=== PATIENT | female | born 1960 | race Caucasian/White ===

== ENCOUNTER 2016-05-05 18:36 | Emergency (ER) | payer OTHER ==
[~2016-05-05] VITALS: Ht 160 cm; Wt 74.8 kg
[2016-05-05 18:41] VITALS: Ht 160 cm; Wt 74.8 kg
[2016-05-05] MEDS ORDERED: ONDANSETRON INJ 2 MG/ML 2 ML VIAL IV STA ×2 (19:29→20:35)
[2016-05-05] MEDS ORDERED: SODIUM CHLORIDE 0.9% 1000ML 1,000 ML IV STA (19:29)
[2016-05-05 20:04] LABS: BASO % 0.1 %; BASO ABS # 0.01 K/uL (0-0.2); COMPLETE YES; EOS % 0.3 %; HEMATOCRIT 45.6 % (37-47); IG% 0.2 %; LYMPH % 4.2 %; LYMPH ABS # 0.44 K/uL (1.2-3.4); MEAN CELL VOLUME 85.2 fL (80-100); MEAN CORPUSCULAR HEMOGLOBIN 30.3 pg (25-34); MEAN CORPUSCULAR HGB CONC 35.5 g/dl (32-36); MEAN PLATELET VOLUME 11.3 fL (7.4-10.4); MONO % 2.3 %; NEUT % 92.9 %; PLATELET COUNT 139 K/uL (130-400); RED BLOOD COUNT 5.35 M/uL (4.2-5.4); WHITE BLOOD COUNT 10.38 K/uL (4.8-10.8)
[2016-05-05 20:27] LABS: BUN/CREATININE RATIO 25.7 (10-20); CALCIUM 8.7 mg/dl (8.5-10.1); CREATININE 0.87 mg/dl (0.60-1.20); POTASSIUM 3.8 mmol/L (3.5-5.1)
[2016-05-05] MEDS ORDERED: AMOX500T PO (20:42)
[2016-05-05] MEDS ORDERED: IBUP-1050 PO (20:42)
[2016-05-05] MEDS ORDERED: PROMETHAZINE HCL INJ 12.5 MG in SODIUM CHLORIDE 0.9% 50ML 50 ML IV STA (21:14)
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
[2016-05-06] MEDS ORDERED: ACETAMINOPHEN 500 MG TAB PO ONE (01:16)
[2016-05-06] MEDS ORDERED: ACETAMINOPHEN 500 MG TAB PO STA (01:20)
[2016-05-06] MEDS ORDERED: NURSING VERBAL MED ORDER ONE ×2 (01:30)
[2016-05-06] MEDS ORDERED: SODIUM CHLORIDE 0.9% 1000ML 1,000 ML IV SCH ×2 (01:30→03:20)
--- NOTE | 2016-05-06 02:06 | EMERGENCY ROOM VISIT NOTE ---
ED Visit Note First contact with patient: 02:00 Dr Kilpatrick contacted me requesting I discharge patient to home with to go crissy. Patient with nausea, vomiting, diarrhea. Feeling better on evaluation by me. Asking to sleep a bit longer prior to contacting significant other for ride home. Patient with no complaints and no further issues on my discussion with her.
--- NOTE | 2016-05-06 02:09 | Medical Consult ---
Consultation Date of Consultation: May 06, 2016. Attending Physician: Jamaal Reason for Consultation: N/V/D History of Present Illness 55 y/o F w/hx of fibroids and related anemia, distant Hx of ETOH abuse presents with nausea vomiting and diarrhea for 1 day. She states she feels hot but could not confirm a fever. She felt weak and dehydrated and sought medical attention therefore. She was evaluated in the ER and provided with 2 L of fluids and antiemetics. She has since improved and has been able to tolerate PO solids and fluids. She has not had significant abdominal pain, fever or additional episodes of vomiting or diarrhea while in the ER. Past Medical/Surgical History Medical Problems: (1) Acute chest pain Status: Acute (2) Diarrhea Status: Acute (3) Dyspnea Status: Acute (4) Headache Status: Acute (5) Intractable vomiting Status: Acute (6) Left leg pain Status: Acute (7) Myalgia Status: Acute (8) Sinusitis Status: Acute (9) URI (upper respiratory infection) Status: Acute Family History FH: alcoholism FH: cancer Father - Alzheimer's dementia Mother - colon CA Social History Smokes 2-3 cigarettes daily - previous ETOH abuse Smoking Status: Current Every Day Smoker Drug Use: none Marital Status: Housing Status: lives with family Occupation Status: employed Allergies Coded Allergies: No Known Allergies (Unverified , 05/05/16) Current Inpatient Medications Current Inpatient Medications Medications (Trade) Dose Ordered Sig/Zabrina Route Start Time Stop Time Status Last Admin Dose Admin Sodium Chloride 916.65 ml @ 500 mls/ hr Q1H50M IV 05/06/16 01:30 05/06/16 03:20 05/06/16 01:37 999 MLS/HR Sodium Chloride (Nss 1000ml) 30 ml @ 15 mls/hr Q2H IV 05/06/16 03:20 05/06/16 05:19 Review of Systems Constitutional: + fatigue, + weakness, No chills, No fever, No sweats Eyes: No worsening of vision ENT: No hearing loss, No nasal symptoms, No unusual epistaxis Respiratory: No cough, No sputum, No wheezing Cardiovascular: No PND, No chest pain, No orthopnea Abdomen: + diarrhea, + nausea, + vomiting, No GI bleeding, No constipation, No pain, No problem reported Musculoskeletal: No joint pain, No muscle pain Genitourinary - Female: No dysuria, No urinary frequency, No urinary urgency Neurologic: No memory loss, No paralysis Psychiatric: No depression symptoms Endocrine: + fatigue Hematologic / Lymphatic: No abnormal bleeding/bruising Integumentary: + rash (Chronic redness over hands/face) Allergic / Immunologic: No environmental allergies Physical Exam Date Time Temp Pulse Resp B/P Pulse Ox O2 Delivery O2 Flow Rate FiO2 05/06/16 01:13 37.5 95 16 96/49 96 Room Air 05/06/16 00:45 81 16 99/58 96 Room Air 05/05/16 22:48 85 16 94/61 96 Room Air 05/05/16 21:53 93 16 95/53 95 Room Air 05/05/16 20:33 36.9 91 16 129/107 97 Room Air 05/05/16 18:41 36.8 79 22 125/68 99 Room Air General Appearance: WD/WN, no apparent distress Head: normocephalic Eyes: normal inspection, PERRL, EOMI ENT: normal ENT inspection, pharynx normal Neck: supple, no JVD Respiratory/Chest: chest non-tender, lungs clear, normal breath sounds, no respiratory distress, no accessory muscle use Cardiovascular: regular rate, rhythm, no edema, no gallop, no JVD, no murmur, normal peripheral pulses Abdomen/GI: normal bowel sounds, non tender, soft Back: normal inspection, no CVA tenderness Extremities/Musculoskelatal: normal inspection, normal range of motion 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: 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 as tested, no motor/sensory deficits, alert, normal mood/affect, normal reflexes, oriented x 3 Skin: warm/dry, + pertinent finding (Mallar erythema - erythema of hands - reported chronic ) Laboratory Results Last 24 Hours Test 05/05/16 19:45 White Blood Count 10.38 K/uL Red Blood Count 5.35 M/uL Hemoglobin 16.2 g/dL Hematocrit 45.6 % Mean Corpuscular Volume 85.2 fL Mean Corpuscular Hemoglobin 30.3 pg Mean Corpuscular Hemoglobin Concent 35.5 g/dl Platelet Count 139 K/uL Mean Platelet Volume 11.3 fL Neutrophils (%) (Auto) 92.9 % Lymphocytes (%) (Auto) 4.2 % Monocytes (%) (Auto) 2.3 % Eosinophils (%) (Auto) 0.3 % Basophils (%) (Auto) 0.1 % Neutrophils # (Auto) 9.64 K/uL Lymphocytes # (Auto) 0.44 K/uL Monocytes # (Auto) 0.24 K/uL Eosinophils # (Auto) 0.03 K/uL Basophils # (Auto) 0.01 K/uL RDW Standard Deviation 40.9 fL RDW Coefficient of Variation 13.2 % Immature Granulocyte % (Auto) 0.2 % Immature Granulocyte # (Auto) 0.02 K/uL Sodium Level 141 mmol/L Potassium Level 3.8 mmol/L Chloride Level 105 mmol/L Carbon Dioxide Level 25 mmol/L Anion Gap 11.0 mmol/L Blood Urea Nitrogen 22 mg/dl Creatinine 0.87 mg/dl Est Creatinine Clear Calc Drug Dose 71.6 ml/min Estimated GFR () 87.5 Estimated GFR (Non- 75.5 BUN/Creatinine Ratio 25.7 Random Glucose 108 mg/dl Calcium Level 8.7 mg/dl Assessment & Plan 55 y/o F w/hx of fibroids and related anemia, distant Hx of ETOH abuse presents with nausea vomiting and diarrhea for 1 day. She states she feels hot but could not confirm a fever. She felt weak and dehydrated and sought medical attention therefore. She was evaluated in the ER and provided with 2 L of fluids and antiemetics. She has since improved and has been able to tolerate PO solids and fluids. She has not had significant abdominal pain, fever or additional episodes of vomiting or diarrhea while in the ER. Pt has symptomatically improved and has no significant lab abnormalities or reported fevers. Case was discussed with the ER MD and advised on D/C and outpt f/u - rx for antiemetics , advise on adequate hydration. Pt told to return to the hospital if symptoms recur, she develops fevers or abdominal pain or is unable to tolerate PO intake and maintain hydration.
[2016-05-06] MEDS ORDERED: ONDANSETRON HOME PACK 4MG OD TAB PO ONE (02:15)
[2016-05-06 02:38] VITALS: BP 95/58; PULSE 95; TEMP 37.5; O2SAT 97
== END 2016-05-06 02:39 | disposition home or self-care (01) ==
LOC: C.EDB 18:38 → C.EDC 05-06 02:39
DX: R11.10 Vomiting, unspecified (principal); R19.7 Diarrhea, unspecified; M19.90 Unspecified osteoarthritis, unspecified site; D64.9 Anemia, unspecified; F17.200 Nicotine dependence, unspecified, uncomplicated; Z87.442 Personal history of urinary calculi; Z80.9 Family history of malignant neoplasm, unspecified

== ENCOUNTER 2016-08-04 16:33 | Emergency (ER) | payer OTHER ==
[~2016-08-04] VITALS: Ht 157.5 cm; Wt 73.5 kg
[~2016-08-04 16:33] MED LIST: AMOX500T PO; IBUP-1050 PO
[2016-08-04 16:36] VITALS: TEMP 36.5; Ht 157.5 cm; Wt 73.5 kg
[2016-08-04] MEDS ORDERED: MoRPHine SULFATE 4 MG/ML 1 ML CARP\\VIAL IV STA ×2 (17:20→19:09)
[2016-08-04] MEDS ORDERED: SODIUM CHLORIDE 0.9% 1000ML 1,000 ML IV STA (17:20)
[2016-08-04] MEDS ORDERED: ONDANSETRON INJ 2 MG/ML 2 ML VIAL IV STA (17:20)
[2016-08-04 17:46] LABS: BASO % 0.2 %; BASO ABS # 0.01 K/uL (0-0.2); COMPLETE YES; EOS % 0.6 %; HEMATOCRIT 41.7 % (37-47); LYMPH % 12.7 %; LYMPH ABS # 0.62 K/uL (1.2-3.4); MEAN CELL VOLUME 85.3 fL (80-100); MEAN CORPUSCULAR HEMOGLOBIN 29.7 pg (25-34); MEAN CORPUSCULAR HGB CONC 34.8 g/dl (32-36); MONO % 10.2 %; NEUT % 76.3 %; PLATELET COUNT 137 K/uL (130-400); RED BLOOD COUNT 4.89 M/uL (4.2-5.4); WHITE BLOOD COUNT 4.89 K/uL (4.8-10.8)
[2016-08-04 17:49] LABS: URINE APPEARANCE CLEAR (CLEAR); URINE BILIRUBIN NEG (NEG); URINE COLOR YELLOW; URINE NITRITE NEG (NEG); URINE SPECIFIC GRAVITY 1.003 (1.000-1.030); UROBILINOGEN NEG (NEG)
[2016-08-04 17:54] LABS: MANUAL MICROSCOPIC REQUIRED? NO; REVIEW REQ? NO
[2016-08-04 18:03] LABS: BUN/CREATININE RATIO 13.8 (10-20); CALCIUM 9.1 mg/dl (8.5-10.1); CREATININE 0.77 mg/dl (0.60-1.20); POTASSIUM 3.7 mmol/L (3.5-5.1)
--- NOTE | 2016-08-04 18:25 | DIAGNOSTIC IMAGING REPORT ---
PA CHEST RADIOGRAPH AND UPRIGHT AND SUPINE AP RADIOGRAPHS OF THE ABDOMEN CLINICAL HISTORY: Abdominal pain, bloating and nausea. COMPARISON STUDY: Chest radiograph January 20, [address] of the chest abdomen and pelvis September 13, 2015. FINDINGS: Lung lungs are normal. There is no pneumothorax or pleural effusion. There is no evidence of pulmonary edema. Cardiomediastinal silhouette is stable. There is no free air. There is no evidence for a bowel obstruction. IMPRESSION: 1. No free air or evidence of bowel obstruction. 2. No acute cardiopulmonary findings. Electronically signed by: Darek Angelo M.D. 08/04/2016 6:24 PM Dictated Date/Time: 08/04/2016 6:23 PM
[2016-08-04] MEDS ORDERED: OPTIRAY 320 IV PRN (19:15)
--- NOTE | 2016-08-04 19:53 | DIAGNOSTIC IMAGING REPORT ---
CT OF THE ABDOMEN AND PELVIS WITH CONTRAST CLINICAL HISTORY: Left-sided abdominal pain. COMPARISON STUDY: CT of the chest, abdomen and pelvis September 13, 2015 TECHNIQUE: Following IV administration of 116 mL of Optiray-320, axial images of the abdomen and pelvis were obtained from the lung bases to the proximal femurs. Images were reviewed in the axial, sagittal, and coronal planes. IV contrast was administered without complication. CT DOSE: 378.18 mGy.cm FINDINGS: A right hepatic lobe hemangioma is again noted. The spleen, adrenal glands, kidneys and pancreas are unremarkable. There is no biliary or pancreatic ductal dilatation. There is no evidence for a bowel obstruction. The appendix is normal. There is no free fluid. There is no abscess. A 10 x 8 x 6.5 cm mixed attenuation enhancing mass arising from the uterine fundus is unchanged since exam of September 13, 2015. This suggests a fibroid. There is no lymphadenopathy. There is no pneumatosis, free air or portal venous gas. No suspicious skeletal lesions are identified. IMPRESSION: 1. No acute process within the abdomen or pelvis. 2. No change in the mass arising from the uterine fundus. This statistically represents a fibroid although this remains a pathologic diagnosis. Electronically signed by: Darek Angelo M.D. 08/04/2016 7:52 PM Dictated Date/Time: 08/04/2016 7:44 PM
[2016-08-04 20:41] VITALS: BP 116/72; PULSE 58; O2SAT 96
--- NOTE | 2016-08-05 22:58 | EMERGENCY ROOM VISIT NOTE ---
ED Visit Note First contact with patient: 17:05 Chief Complaint: Abdominal pain. History of Present Illness: Ms. Fowler is a 56 year-old white female who ambulates into the ED accompanied by her complaining of diffuse abdominal pain. Historically patient reports no significant gastrointestinal disorders patient reports she came to the ER from her doctor's office. She reports her PCP ordered outpatient testing but she reported she "was feeling so bad she wanted to come to the ED" for further evaluation and care. Patient reports shortly after waking yesterday morning she developed a mild achiness sensation just below the umbilicus in the central portion of the abdomen. She reports the discomfort was constant throughout the day but not severe. She did not take any medications for her pain and she noticed just a general decrease in appetite. She goes on to report that today after waking the pain seems slightly worse but remained constant. She then reports she had a large loose bowel movement and the pain increased. She describes her pain as sharp and crampy. She places the majority of her discomfort in the left mid quadrant area. She rates her discomfort 7/10. Her pain is nonradiating. She has not taken any medications for her discomfort and has not identified any alleviating factors related to the pain. Associated with the pain she reports she's been nauseated but has not vomited, she has had chills but is unsure chilo fevers and she has had a decreased appetite. Additionally she does report that she was on antibiotics approximately 2 months ago for cyst structure on her left leg and this pain medication needed to be redosed for return of infection. She does not remember the name of the antibiotic. Patient denies sweats, skin eruptions, skin color changes, upper respiratory tract symptoms, shortness of breath, chest pain, constipation, rectal bleeding, black/tarry stools, urinary symptoms, hematuria, vaginal bleeding, vaginal discharge, back/flank pain. Review of Systems: As noted above in history of present illness. All body systems were reviewed and found to be negative as noted above. Past Medical History: Unspecified skin disorder. Current Medications: Patient denies. Allergies to Medications: Patient denies. Social History: Patient is currently employed; she feels safe in her home environment; she admits to tobacco use and denies alcohol use. Physical Examination: Vital Signs: Date Time Temp Pulse Resp B/P Pulse Ox O2 Delivery O2 Flow Rate FiO2 08/04/16 20:41 58 116/72 96 Room Air 08/04/16 19:19 70 16 113/74 97 Room Air 08/04/16 17:43 70 16 138/80 99 Room Air 08/04/16 16:36 36.5 91 20 140/92 99 Room Air GENERAL: 56-year-old female in moderate distress due to pain, nontoxic-appearing , afebrile and hemodynamically stable. NEUROLOGICAL: Awake, alert and oriented to person, place and time. Answering questions appropriately and following commands. Normal gait. Good hand eye coordination. SKIN: Warm, dry and pink. No soft tissue eruptions or trauma noted. HEENT: Atraumatic and normocephalic. PERRL. Sclera white and conjunctiva pink. Oral cavity moist and pink. Pharynx is nonerythematous or edematous. Speech normal. No lymphadenopathy. Trachea midline. No jugular venous distention. BACK: No tenderness over the bony spine. No CVA tenderness. THORAX: Lungs sounds are clear to auscultation and equal bilaterally with symmetrical chest wall. No wheezing, rales or rhonchi. No crepitus, tenderness , subcutaneous air or deformities noted. HEART: Regular rate and rhythm. No gallops, rubs or murmurs are appreciated. ABDOMEN: Flat and with mild to moderate tenderness in the left mid quadrant area and mild discomfort throughout the rest of the abdomen. Decreased bowel sounds in all quadrants. No guarding, rigidity or organomegaly. EXTREMITIES: Moves all extremities well on command and with purpose. All distal neurovascular statuses are intact and equal bilaterally. ED Course: Patient is assessed as noted above. Laboratory Testing: Test 08/04/16 17:31 08/04/16 17:34 Range/Units White Blood Count 4.89 4.8-10.8 K/uL Red Blood Count 4.89 4.2-5.4 M/uL Hemoglobin 14.5 12.0-16.0 g/dL Hematocrit 41.7 37-47 % Mean Corpuscular Volume 85.3 80-100 fL Mean Corpuscular Hemoglobin 29.7 25-34 pg Mean Corpuscular Hemoglobin Concent 34.8 32-36 g/dl Platelet Count 137 130-400 K/uL Mean Platelet Volume 10.0 7.4-10.4 fL Neutrophils (%) (Auto) 76.3 % Lymphocytes (%) (Auto) 12.7 % Monocytes (%) (Auto) 10.2 % Eosinophils (%) (Auto) 0.6 % Basophils (%) (Auto) 0.2 % Neutrophils # (Auto) 3.73 1.4-6.5 K/uL Lymphocytes # (Auto) 0.62 1.2-3.4 K/uL Monocytes # (Auto) 0.50 0.11-0.59 K/uL Eosinophils # (Auto) 0.03 0-0.5 K/uL Basophils # (Auto) 0.01 0-0.2 K/uL RDW Standard Deviation 41.3 36.4-46.3 fL RDW Coefficient of Variation 13.2 11.5-14.5 % Immature Granulocyte % (Auto) 0.0 % Immature Granulocyte # (Auto) 0.00 0.00-0.02 K/uL Sodium Level 142 136-145 mmol/L Potassium Level 3.7 3.5-5.1 mmol/L Chloride Level 107 98-107 mmol/L Carbon Dioxide Level 28 21-32 mmol/L Anion Gap 7.0 3-11 mmol/L Blood Urea Nitrogen 11 7-18 mg/dl Creatinine 0.77 0.60-1.20 mg/dl Est Creatinine Clear Calc Drug Dose 77.5 ml/min Estimated GFR () 100.7 Estimated GFR (Non- 86.9 BUN/Creatinine Ratio 13.8 10-20 Random Glucose 87 70-99 mg/dl Calcium Level 9.1 8.5-10.1 mg/dl Total Bilirubin 0.6 0.2-1 mg/dl Direct Bilirubin 0.2 0-0.2 mg/dl Aspartate Amino Transf (AST/SGOT) 21 15-37 U/L Alanine Aminotransferase (ALT/SGPT) 21 12-78 U/L Alkaline Phosphatase 60 45-117 U/L Total Protein 7.6 6.4-8.2 gm/dl Albumin 4.1 3.4-5.0 gm/dl Lipase 145 73-393 U/L Urine Color YELLOW Urine Appearance CLEAR CLEAR Urine pH 7.0 4.5-7.5 Urine Specific [place] 1.003 1.000-1.030 Urine Protein NEG NEG Urine Glucose (UA) NEG NEG Urine Ketones NEG NEG Urine Occult Blood NEG NEG Urine Nitrite NEG NEG Urine Bilirubin NEG NEG Urine Urobilinogen NEG NEG Urine Leukocyte Esterase NEG NEG Acute Abdominal Series: Chest shows no acute infiltrates, effusions or pneumothorax. Normal heart silhouette and bony anatomy. Abdominal component shows a nonobstructive bowel gas pattern with no signs of free air. IV Contrast Abdominal/Pelvic CT: Was reviewed by myself and read by the radiologist showing no acute process within the abdomen or pelvis; stable appearing right hepatic hemangioma and no change of a mass arising from the uterine fundus statistically consistent with fibroid. Patient was hydrated with normal saline, she received a total of 8 mg of morphine IV for pain and 4 mg of Zofran IV. Patient was reassessed multiple times during her stay in the emergency department. Patient's case was reviewed with Dr. Falcon; we agreed on diagnostic approach, treatment, disposition and plan. Patient was educated about negrita's findings and instructed on her treatment plan; she verbalizes understanding and agreement with this plan. Clinical Impression: Left-sided abdominal pain of unknown causes. Decision-Making: Initially my differential diagnosis I considered pyelonephritis , diverticulitis, kidney stone, colitis, C. difficile, hepatitis, pancreatitis and other causes. Disposition: Patient discharged home in stable condition; prior to departure she was reassessed and subjectively reported she was pain and symptom-free. Plan: Patient was encouraged to alternate ibuprofen and acetaminophen as needed for pain. Patient was encouraged to stay well-hydrated. Patient was encouraged use a bland diet for the next 3-4 days. Patient is encouraged to follow-up with her primary care provider. Patient was encouraged return the ED for severe pain, fevers, vomiting, bloody stools or any new/concerning symptoms.
== END 2016-08-04 20:30 | disposition home or self-care (01) ==
LOC: C.EDB 16:35
DX: R10.9 Unspecified abdominal pain (principal)

== ENCOUNTER 2016-09-07 08:52 | Emergency (ER) | payer OTHER ==
[~2016-09-07] VITALS: Ht 160 cm; Wt 80.4 kg
[2016-09-07 09:00] VITALS: TEMP 36.8; Ht 160 cm; Wt 80.4 kg
[2016-09-07] MEDS ORDERED: ONDANSETRON INJ 2 MG/ML 2 ML VIAL IV STA (09:09)
[2016-09-07] MEDS ORDERED: SODIUM CHLORIDE 0.9% 1000ML 1,000 ML IV STA ×2 (09:09→10:57)
[2016-09-07 09:38] LABS: BASO % 0.2 %; BASO ABS # 0.01 K/uL (0-0.2); COMPLETE YES; EOS % 0.5 %; HEMATOCRIT 43.9 % (37-47); IG% 0.2 %; LYMPH % 9.8 %; LYMPH ABS # 0.62 K/uL (1.2-3.4); MEAN CELL VOLUME 87.1 fL (80-100); MEAN CORPUSCULAR HEMOGLOBIN 29.2 pg (25-34); MEAN CORPUSCULAR HGB CONC 33.5 g/dl (32-36); MEAN PLATELET VOLUME 9.8 fL (7.4-10.4); MONO % 7.3 %; PLATELET COUNT 140 K/uL (130-400); RED BLOOD COUNT 5.04 M/uL (4.2-5.4)
[2016-09-07 10:04] LABS: BUN/CREATININE RATIO 17.9 (10-20); CALCIUM 8.9 mg/dl (8.5-10.1); CREATININE 0.71 mg/dl (0.60-1.20); MAGNESIUM 1.9 mg/dl (1.8-2.4); POTASSIUM 3.9 mmol/L (3.5-5.1)
--- NOTE | 2016-09-07 10:04 | DIAGNOSTIC IMAGING REPORT ---
HEAD CT NONCONTRAST CT DOSE: 776.86 mGycm HISTORY: Worst headache of life, frontal headache TECHNIQUE: Multiaxial CT images of the head were performed without the use of intravenous contrast. Automated exposure control was utilized for this study. Comparison: Head CT 02/05/2015 and 09/20/2013. Findings: Stable chronic opacification of the left maxillary sinus. The calvarium and skull base are intact. 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 No hydrocephalus. Ventricles and sulci are within normal limits. There is no hematoma, midline shift, acute infarct. Impression: No significant change compared to the prior study. No acute intracranial abnormality. Stable chronic opacification of the left maxillary sinus. Electronically signed by: Marcos Donald M.D. 09/07/2016 10:03 AM Dictated Date/Time: 09/07/2016 9:58 AM
[2016-09-07 10:07] LABS: ALB/GLOB RATIO 1.2 (0.9-2)
[2016-09-07] MEDS ORDERED: PROMETHAZINE HCL INJ 12.5 MG in SODIUM CHLORIDE 0.9% 50ML 50 ML IV STA (10:39)
[2016-09-07] MEDS ORDERED: KETOROLAC TROMETHAMINE 30 MG/ML VIAL IV STA (10:41)
[2016-09-07] MEDS ORDERED: DiphenhydrAMINE HCL 50 MG/ML VIAL IV STA (10:41)
[2016-09-07] MEDS ORDERED: PROCHLORPERAZINE 5 MG/ML 2 ML VIAL IV STA (10:41)
[2016-09-07 11:11] LABS: URINE APPEARANCE CLEAR (CLEAR); URINE BILIRUBIN NEG (NEG); URINE COLOR YELLOW; URINE NITRITE POS (NEG); URINE PH 7.5 (4.5-7.5); UROBILINOGEN NEG (NEG)
[2016-09-07 11:16] LABS: MANUAL MICROSCOPIC REQUIRED? YES; REVIEW REQ? NO; SULFASALICYLIC ACID NEG (NEG)
[2016-09-07 11:18] LABS: URINE BACTERIA 3+ (NEG); URINE RBC 0-4 /hpf (0-4); ZZUR CULT IF INDIC CLEAN CATCH YES
[2016-09-07] MEDS ORDERED: ONDA4TAB10 SL (12:30)
--- NOTE | 2016-09-07 12:32 | EMERGENCY ROOM VISIT NOTE ---
History First contact with patient: 08:55 Chief Complaint: NAUSEA Stated Complaint: NAUSEA,VOMITTING Nursing Triage Summary: pt reports she went to dentist yetserday had left lower molar extracted yesterday today feels nauseated. pt reports extraction took 2 hours History of Present Illness The patient is a 56 year old female who presents to the Emergency Room via private vehicle with complaints of "nausea, vomiting". Patient states that yesterday she had her left posterior inferior molar extracted by Dr. Fitzgerald here and [facility]. She states that she then began with a headache, and will dental pain. She states that the headache felt like she was struck by a sledgehammer. She has had nausea and associated vomiting 1. She rates the headache pain as a 7/10. She is taking tramadol with minimal relief. There is no abdominal pain. There are no urinary symptoms. She does not that her urine does have an odorous hint. Review of Systems A complete 10-point Review of Systems was discussed with the patient, with pertinent positives and negatives listed in the History of Present Illness. All remaining Review of Systems questions can be considered negative unless otherwise specified. Past Medical/Surgical History Medical Problems: (1) Alcohol abuse (2) Anemia (3) Arthritis (4) chest tight /sob (5) Kidney infection Family History FH: alcoholism FH: cancer Social History Smoking Status: Current Every Day Smoker Alcohol Use: occasionally Drug Use: none Marital Status: Housing Status: lives with family Occupation Status: employed Current/Historical Medications Scheduled Ondasetron Odt (Zofran Odt), 4 MG SL Q6H Allergies Coded Allergies: No Known Allergies (Unverified , 09/07/16) Physical Exam Vital Signs Date Time Temp Pulse Resp B/P Pulse Ox O2 Delivery O2 Flow Rate FiO2 09/07/16 12:50 65 16 116/75 99 09/07/16 11:01 69 16 98/56 99 Room Air 09/07/16 09:00 36.8 68 18 137/82 97 Room Air Pain Rating (0-10): 7.0 Physical Exam VITAL SIGNS - Vital signs and nursing notes were reviewed. Patient is with normal vital signs. GENERAL -56-year-old female appearing her stated age who is in no acute distress. Communicates well with provider and answers questions appropriately. SKIN - Without rashes. No petechial rashes. HEAD - NC/AT. No brock signs or raccoons eyes. EYES - PERRL with EOMI bilaterally. Sclera anicteric. Palpebral conjunctiva pink and moist with no injection noted. EARS - No deformities of external structures noted on gross examination bilaterally. No pain elicited with palpation of the tragus bilaterally. External auditory canals without discharge or otorrhea. Tympanic membranes pearly vaughn without retraction or bulging. No fluid or purulent material visualized behind the TM. Handle of malleus, umbo, cone of light, pars tensa/ flaccid all easily visualized. NOSE - Midline and without cyanosis. No epistaxis or purulent drainage noted. Septum midline without deviation or septal hematoma noted. MOUTH/OROPHARYNX - Without perioral cyanosis. Buccal mucosa pink and moist and without leukoplakia. Tongue midline with equal elevation of palate bilaterally. No tonsillar hypertrophy, erythema, or exudates noted. Poor dentition noted. There is evidence of recent tooth extraction in the inferior posterior left molar region with no bleeding. NECK - Neck with FROM. Supple to palpation. No lymphadenopathy noted. No nuchal rigidity. No meningismus. LUNGS - Chest wall symmetric without accessory muscle use, intercostals retractions, or central cyanosis. Normal vesicular breath sounds CTA B/L. No wheezes, rales, or rhonchi appreciated. CARDIAC - RRR with S1/S2. No murmur, rubs, or gallops appreciated. EXTREMITIES - +5/5 strength noted in UE/LE bilaterally. NEUROLOGIC - Cranial nerves II through XII grossly intact. PSYCH - A&Ox3 and cooperates fully with examiner. Pt is very pleasant and interacts well with examiner. Medical Decision & Procedures ER Provider Diagnostic Interpretation: HEAD CT NONCONTRAST CT DOSE: 776.86 mGycm HISTORY: Worst headache of life, frontal headache TECHNIQUE: Multiaxial CT images of the head were performed without the use of intravenous contrast. Automated exposure control was utilized for this study. Comparison: Head CT 02/05/2015 and 09/20/2013. Findings: Stable chronic opacification of the left maxillary sinus. The calvarium and skull base are intact. 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 No hydrocephalus. Ventricles and sulci are within normal limits. There is no hematoma, midline shift, acute infarct. Impression: No significant change compared to the prior study. No acute intracranial abnormality. Stable chronic opacification of the left maxillary sinus. Electronically signed by: Marcos Donald M.D. 09/07/2016 10:03 AM Dictated Date/Time: 09/07/2016 9:58 AM Laboratory Results 09/07/16 09:32 Red Blood Count 5.04, Mean Corpuscular Volume 87.1, Mean Corpuscular Hemoglobin 29.2, Mean Corpuscular Hemoglobin Concent 33.5, Mean Platelet Volume 9.8, Neutrophils (%) (Auto) 82.0, Lymphocytes (%) (Auto) 9.8, Monocytes (%) (Auto) 7.3, Eosinophils (%) (Auto) 0.5, Basophils (%) (Auto) 0.2, Neutrophils # (Auto) 5.17, Lymphocytes # (Auto) 0.62, Monocytes # (Auto) 0.46, Eosinophils # (Auto) 0.03, Basophils # (Auto) 0.01 09/07/16 09:32 Test 09/07/16 09:32 09/07/16 11:00 White Blood Count 6.30 K/uL (4.8-10.8) Red Blood Count 5.04 M/uL (4.2-5.4) Hemoglobin 14.7 g/dL (12.0-16.0) Hematocrit 43.9 % (37-47) Mean Corpuscular Volume 87.1 fL (80-100) Mean Corpuscular Hemoglobin 29.2 pg (25-34) Mean Corpuscular Hemoglobin Concent 33.5 g/dl (32-36) Platelet Count 140 K/uL (130-400) Mean Platelet Volume 9.8 fL (7.4-10.4) Neutrophils (%) (Auto) 82.0 % Lymphocytes (%) (Auto) 9.8 % Monocytes (%) (Auto) 7.3 % Eosinophils (%) (Auto) 0.5 % Basophils (%) (Auto) 0.2 % Neutrophils # (Auto) 5.17 K/uL (1.4-6.5) Lymphocytes # (Auto) 0.62 K/uL (1.2-3.4) Monocytes # (Auto) 0.46 K/uL (0.11-0.59) Eosinophils # (Auto) 0.03 K/uL (0-0.5) Basophils # (Auto) 0.01 K/uL (0-0.2) RDW Standard Deviation 42.0 fL (36.4-46.3) RDW Coefficient of Variation 13.2 % (11.5-14.5) Immature Granulocyte % (Auto) 0.2 % Immature Granulocyte # (Auto) 0.01 K/uL (0.00-0.02) Anion Gap 6.0 mmol/L (3-11) Est Creatinine Clear Calc Drug Dose 89.9 ml/min Estimated GFR () 111.1 Estimated GFR (Non- 95.9 BUN/Creatinine Ratio 17.9 (10-20) Calcium Level 8.9 mg/dl (8.5-10.1) Magnesium Level 1.9 mg/dl (1.8-2.4) Total Bilirubin 0.5 mg/dl (0.2-1) Aspartate Amino Transf (AST/SGOT) 15 U/L (15-37) Alanine Aminotransferase (ALT/SGPT) 19 U/L (12-78) Alkaline Phosphatase 64 U/L (45-117) Total Protein 7.2 gm/dl (6.4-8.2) Albumin 3.9 gm/dl (3.4-5.0) Globulin 3.3 gm/dl (2.5-4.0) Albumin/Globulin Ratio 1.2 (0.9-2) Urine Color YELLOW Urine Appearance CLEAR (CLEAR) Urine pH 7.5 (4.5-7.5) Urine Specific [place] 1.010 (1.000-1.030) Urine Protein NEG (NEG) Urine Glucose (UA) NEG (NEG) Urine Ketones NEG (NEG) Urine Occult Blood NEG (NEG) Urine Nitrite POS (NEG) Urine Bilirubin NEG (NEG) Urine Urobilinogen NEG (NEG) Urine Leukocyte Esterase NEG (NEG) Urine RBC 0-4 /hpf (0-4) Urine WBC 1-5 /hpf (0-5) Urine Epithelial Cells 5-10 /lpf (0-5) Urine Bacteria 3+ (NEG) Medications Administered Medications (Trade) Dose Ordered Sig/Zabrina Route Start Time Stop Time Status Last Admin Dose Admin Ondansetron HCl 4 mg 4 mg NOW STAT IV 09/07/16 09:09 09/07/16 09:16 DC 09/07/16 09:30 4 MG Sodium Chloride (Nss 1000ml) 1,000 ml @ 999 mls/hr Q1H1M STAT IV 09/07/16 09:09 09/07/16 10:09 DC 09/07/16 09:26 999 MLS/HR Ketorolac Tromethamine (Toradol Inj) 30 mg NOW STAT IV 09/07/16 10:41 09/07/16 10:44 DC 09/07/16 10:57 30 MG Diphenhydramine HCl (Benadryl Inj) 25 mg NOW STAT IV 09/07/16 10:41 09/07/16 10:44 DC 09/07/16 10:58 25 MG Prochlorperazine Edisylate 5 mg 5 mg NOW STAT IV 09/07/16 10:41 09/07/16 10:44 DC 09/07/16 10:57 5 MG Sodium Chloride (Nss 1000ml) 1,000 ml @ 999 mls/hr Q1H1M STAT IV 09/07/16 10:57 09/07/16 11:57 DC 09/07/16 11:00 999 MLS/HR Medical Decision Patient was seen and evaluated as above. After obtaining a thorough history and physical examination IV access was initiated and the above workup was performed. CT scan was obtained of the head secondary to the patient's severity of headache. She was given Zofran for her nausea and hydrated with a liter of normal saline. She was reevaluated and was continuing to feel pain rated as elevated. CT scan results as above. Stable changes. These findings were thoroughly discussed with the patient. She was given Toradol, Benadryl and Compazine for her headache. Phenergan was also ordered but then discontinued. She was also hydrated with 1 L of normal saline. She was feeling much better after the Toradol Benadryl Compazine. She notes that her headache was completely gone. CBC unremarkable for emergent process, CMP unremarkable, urine reveals positive nitrites, 3+ urine bacteria and epithelial cells. The patient was discharged from the dentist office with a prescription for amoxicillin but has not began this medication yet. I recommended that she begin the amoxicillin 3 times a day and the bottle was for 28 pills. I do suspect that she can begin this to help with the tooth as well as a UTI. I told the patient that if her culture reveals that the medication is resistant to the amoxicillin, she'll be notified any medication will be started. The patient seemed happy with this plan, was educated upon management today's findings, educated upon worrisome symptoms in which to return, had questions prior to discharge and was discharged home in good condition. In the evaluation and treatment of this patient, the following differential diagnoses were considered: Concussion, Contrecoup Injury, Brain Tumor, Depression, Encephalitis, Hypothyroidism, Meningitis, CVA, TIA, Migraine, Cluster Headache, Intracranial Abnormality, Intracranial Hemorrhage, Subdural Hematoma, Subarachnoid Hemorrhage, Hydrocephalus. Impression Primary Impression: Odontalgia Additional Impressions: Headache UTI (urinary tract infection) Departure Information Dispostion Home / Self-Care Condition GOOD Prescriptions Ondasetron Odt (ZOFRAN ODT) 4 Mg Tab 4 MG SL Q6H for Nausea, #10 TAB Prov: Irving Zhang PA-C 09/07/16 Referrals Vickie Hamilton MD (PCP) Patient Instructions My [facility] Additional Instructions You were seen in the emergency department for your headache, tooth pain, nausea and vomiting. As we discussed at this time your blood work looks excellent, however your urine does reveal chance of infection. For this reason, the amoxicillin as recommended and he'll be notified in 2 days if the urine reveals a bacteria that is not treated by your current antibiotic. Because of this it is recommended that you do take the amoxicillin 500 mg 3 times a day as you're previously prescribed. You've also been prescribed Zofran if needed for any nausea. This is one tablet underneath her tongue every 6 hours. Please begin with a bland diet, and consume plenty of fluids. You may use Tylenol which is acetaminophen, and ibuprofen which is Motrin according to the package insert. Please be careful to not take anything else that it contains Tylenol acetaminophen with this. Please call your dentist to schedule follow-up regarding her dental pain. As we discussed please return here with any new/concerning symptoms. Thank you for your time. Problem Qualifiers
[2016-09-07 12:50] VITALS: BP 116/75; PULSE 65; O2SAT 99
--- NOTE | 2016-09-09 11:53 | Pharmacy Progress Note ---
ED Pharmacist Culture FollowUp Date of Service: September 09, 2016. Patient was instructed to start her prescription for amoxicillin (which she had already been prescribed as an outpatient). The amoxicillin should cover the E. coli growing from the patient's urine culture (based on reported sensitivity to ampicillin).
== END 2016-09-07 12:50 | disposition home or self-care (01) ==
LOC: C.EDB 08:53
DX: K08.89 Other specified disorders of teeth and supporting structures (principal); R51 Headache; N39.0 Urinary tract infection, site not specified; R11.2 Nausea with vomiting, unspecified; Z87.448 Personal history of other diseases of urinary system; Z87.898 Personal history of other specified conditions; Z81.1 Family history of alcohol abuse and dependence; F17.200 Nicotine dependence, unspecified, uncomplicated

== ENCOUNTER → 2016-12-08 | Outpatient (CLI) | payer OTHER ==
[~2016-12-08] MED LIST changes: -AMOX500T PO; +DICY20TA35 PO; -IBUP-1050 PO; +METR500T PO; +ONDA4TAB10 SL; +SULF800T23 PO
[2016-12-08 13:33] LABS: URINE APPEARANCE CLEAR (CLEAR); URINE BILIRUBIN NEG (NEG); URINE COLOR YELLOW; URINE EPITHELIAL CELL AUTO >30 /lpf (0-5); URINE NITRITE POS (NEG); URINE PH 5.5 (4.5-7.5); URINE SPECIFIC GRAVITY 1.014 (1.000-1.030); UROBILINOGEN NEG (NEG)
[2016-12-08 13:46] LABS: MANUAL MICROSCOPIC REQUIRED? NO; REVIEW REQ? YES
== END | disposition home or self-care (01) ==
LOC: C.LABSPEC 11:07
PROVIDERS: ATTEND Family Medicine
DX: N39.0 Urinary tract infection, site not specified (principal)

== ENCOUNTER 2016-12-21 12:05 | Emergency (ER) | payer OTHER ==
[~2016-12-21] VITALS: Ht 160 cm; Wt 71.5 kg
[~2016-12-21 12:05] MED LIST changes: -DICY20TA35 PO; -METR500T PO; -SULF800T23 PO
[2016-12-21 12:09] VITALS: TEMP 36.6; Ht 160 cm; Wt 71.5 kg
[2016-12-21] MEDS ORDERED: SULF800T23 PO (12:51)
[2016-12-21 12:52] LABS: BASO % 0.5 %; BASO ABS # 0.02 K/uL (0-0.2); COMPLETE YES; EOS % 1.6 %; HEMATOCRIT 42.2 % (37-47); LYMPH % 14.6 %; LYMPH ABS # 0.55 K/uL (1.2-3.4); MEAN CELL VOLUME 85.3 fL (80-100); MEAN CORPUSCULAR HEMOGLOBIN 29.5 pg (25-34); MEAN CORPUSCULAR HGB CONC 34.6 g/dl (32-36); MONO % 7.9 %; NEUT % 75.4 %; PLATELET COUNT 146 K/uL (130-400); RED BLOOD COUNT 4.95 M/uL (4.2-5.4); WHITE BLOOD COUNT 3.78 K/uL (4.8-10.8)
[2016-12-21 12:55] LABS: URINE APPEARANCE CLEAR (CLEAR); URINE BILIRUBIN NEG (NEG); URINE COLOR YELLOW; URINE NITRITE NEG (NEG); URINE SPECIFIC GRAVITY 1.008 (1.000-1.030); UROBILINOGEN NEG (NEG); ZZUR CULT IF INDIC CLEAN CATCH NO
[2016-12-21 12:57] LABS: MANUAL MICROSCOPIC REQUIRED? YES; REVIEW REQ? NO
[2016-12-21 13:07] LABS: URINE BACTERIA NEG (NEG); URINE RBC 0-4 /hpf (0-4); URINE WBC 0 /hpf (0-5)
[2016-12-21 13:12] LABS: BUN/CREATININE RATIO 9.3 (10-20); CALCIUM 8.8 mg/dl (8.5-10.1); CREATININE 0.95 mg/dl (0.60-1.20); POTASSIUM 3.9 mmol/L (3.5-5.1)
[2016-12-21 13:14] LABS: ALB/GLOB RATIO 1.2 (0.9-2)
[2016-12-21] MEDS ORDERED: SODIUM CHLORIDE 0.9% 1000ML 1,000 ML IV STA ×2 (14:10→16:41)
[2016-12-21] MEDS ORDERED: ONDANSETRON 8 MG/54 ML D5W IV STA (14:10)
[2016-12-21] MEDS ORDERED: KETOROLAC TROMETHAMINE 30 MG/ML VIAL IV STA (14:12)
--- NOTE | 2016-12-21 14:15 | EMERGENCY ROOM VISIT NOTE ---
History Report prepared by Lachelle: Karishma Quijano Under the Supervision of: Dr. Marlin Swann D.O. First contact with patient: 13:56 Chief Complaint: ILLNESS Stated Complaint: FEVER, NAUSEA, DIARRHEA History of Present Illness The patient is a 56 year old female who presents to the Emergency Room with complaints of a fever beginning 3 days ago. The patient reports that she has also had nausea and lower back pain. The patient reports having diarrhea starting last night, but that she has not noticed blood in it. She reports that her pain waxes and wanes. She states that she had UTI a couple of weeks ago and was placed on Bactrim and then she stopped taking it a week ago. She reports that she feels like she constantly has to urinate, much like how she felt when she had her UTI. The patient also reports being bit by a caterpillar on her back and that since this, her back has been itching, burning, and inflamed. The patient reports that she saw her PCP and he said that he thinks she may have a gallbladder problem. She also states that she had a cortisone shot on her buttock 3 weeks ago, and has had a burning pain up her leg since the shot. The patient reports that she has a history of kidney infections. Pt denies headache , change in vision, chest pain, shortness of breath, vomiting, pain with urination, and melena. Pt states she saw her PCP today and was told come to the ER bc during her exam she had RUQ pain and they felt she needed an US to evaluate her gallbladder. Source of History: patient Onset: 3 days ago Position: other (global) Quality: other (fever) Timing: waxes/wanes Associated Symptoms: + nausea, + back pain (lower ), + diarrhea, No headache , No chest pain, No vomiting, No melena Review of Systems See HPI for pertinent positives & negatives. A total of 10 systems reviewed and were otherwise negative. Past Medical & Surgical Medical Problems: (1) Alcohol abuse (2) Anemia (3) Arthritis (4) chest tight /sob (5) Kidney infection Family History FH: alcoholism FH: cancer Social History Smoking Status: Current Some Day Smoker Alcohol Use: occasionally Drug Use: none Marital Status: Housing Status: lives with family Occupation Status: employed Current/Historical Medications Scheduled Metronidazole (Flagyl), 500 MG PO TID Ondasetron Odt (Zofran Odt), 4 MG SL Q6H Sulfa/Trimethoprim (Bactrim Ds 800MG/160MG), 1 TAB PO BID Scheduled PRN Dicyclomine Hcl (Bentyl), 20 MG PO TID PRN for Pain Allergies Coded Allergies: No Known Allergies (Unverified , 12/21/16) Physical Exam Vital Signs Date Time Temp Pulse Resp B/P (MAP) Pulse Ox O2 Delivery O2 Flow Rate FiO2 12/21/16 18:05 56 18 125/77 100 Room Air 12/21/16 16:03 61 18 105/63 99 Room Air 12/21/16 14:12 64 16 107/73 99 Room Air 12/21/16 12:09 36.6 69 16 123/80 98 Room Air Pain Rating (0-10): 5.0 Physical Exam GENERAL: alert, well appearing, well nourished, no distress, non-toxic EYE EXAM: normal conjunctiva, PERRL and EOM's grossly intact OROPHARYNX: no exudate, no erythema, lips, buccal mucosa, and tongue normal and mucous membranes are mildly dry NECK: supple, no nuchal rigidity, no adenopathy, non-tender LUNGS: Clear to auscultation. Normal chest wall mechanics, no w/r/r HEART: no murmurs, S1 normal and S2 normal ABDOMEN: abdomen soft, generalized discomfort, normo-active bowel sounds, no masses, no rebound or guarding. BACK: Back is symmetrical on inspection and there is no deformity, no midline tenderness, no CVA tenderness. SKIN: no rashes and no bruising UPPER EXTREMITIES: upper extremities are grossly normal. LOWER EXTREMITIES: No pitting edema. NEURO EXAM: Normal sensorium, cranial nerves II-XII grossly intact, normal speech, no gross weakness of arms, no gross weakness of legs. Medical Decision & Procedures ER Provider Diagnostic Interpretation: Radiology results have been interpreted by the radiologist and reviewed by me. ULTRASOUND RIGHT UPPER QUADRANT ABDOMEN CLINICAL HISTORY: Epigastric/right upper quadrant abdominal pain. COMPARISON STUDY: Abdominal CT dated 08/04/2016 and 09/13/2015. TECHNIQUE: Real-time, grayscale, and color flow sonography of the right upper quadrant of the abdomen was performed. Images are reviewed in the transverse and longitudinal planes. FINDINGS: Liver: The liver is normal in size and echotexture. There is no intrahepatic biliary ductal dilatation. The main portal vein is patent. There is a 3.4 cm well-circumscribed echogenic lesion identified in the right lobe of the liver. This is typical appearance for hemangioma. At least 2 additional subcentimeter hemangiomas are suggested. Gallbladder: Tiny gallbladder polyps measure up to 5 mm. The gallbladder is otherwise normal in appearance. No shadowing gallstones are identified. There is no gallbladder wall thickening or pericholecystic fluid. A sonographic Arenas's sign is reportedly absent. The common bile duct measures up to 0.4 cm in diameter. Pancreas: Visualized portions of the pancreatic head and body are normal in appearance. Right kidney: Survey images of the right kidney demonstrate normal size and echotexture. There is no hydronephrosis. Ascites: None. IMPRESSION: 1. No acute sonographic abnormality is identified in the right upper quadrant. 2. A 3.4 cm well-circumscribed echogenic lesion in the right lobe of liver is again noted. The appearance is typical for a benign hemangioma when correlated with prior abdominal CT scans. 3. Small gallbladder polyps are incidentally noted. Electronically signed by: Modesto Zambrano M.D. 12/21/2016 3:31 PM Dictated Date/Time: 12/21/2016 3:[address] OF THE ABDOMEN AND PELVIS WITH CONTRAST CLINICAL HISTORY: Left lower quadrant abdominal pain, nausea and diarrhea. COMPARISON STUDY: CT of the abdomen and pelvis August 04, 2016 and right upper quadrant ultrasound performed earlier today. TECHNIQUE: Following IV administration of 93 mL of Optiray-320, axial images of the abdomen and pelvis were obtained from the lung bases to the proximal femurs. Images were reviewed in the axial, sagittal, and coronal planes. IV contrast was administered without complication. A dose lowering technique was utilized adhering to the principles of ALARA. CT DOSE: 430.60 mGycm FINDINGS: No pneumatosis, free air or portal venous gas is present. Multiple hepatic lesions are unchanged from earlier exams and likely reflect hemangiomas. These include a 3 cm posterior segment right hepatic lobe lesion and a 1.7 cm inferior right hepatic lobe lesion. No new hepatic lesions are present. The spleen, adrenal glands, kidneys and pancreas are normal. There is no evidence for a bowel obstruction. There is mild wall thickening of the ascending colon with trace pericolonic infiltration. This suggests a nonspecific colitis. The appendix is normal. Mass like enlargement of the uterus is similar to prior exam. There is no free fluid. IMPRESSION: 1. Mild wall thickening of the ascending colon with trace pericolonic infiltration. This suggests a mild nonspecific colitis, likely infectious in etiology. 2. No bowel obstruction. Normal appendix. 3. No change in several hepatic lesions which likely reflect hemangiomas. 4. Fibroid uterus. Electronically signed by: Darek Angelo M.D. 12/21/2016 5:35 PM Dictated Date/Time: 12/21/2016 5:23 PM Laboratory Results 12/21/16 12:30 Red Blood Count 4.95, Mean Corpuscular Volume 85.3, Mean Corpuscular Hemoglobin 29.5, Mean Corpuscular Hemoglobin Concent 34.6, Mean Platelet Volume 10.0, Neutrophils (%) (Auto) 75.4, Lymphocytes (%) (Auto) 14.6, Monocytes (%) (Auto) 7.9, Eosinophils (%) (Auto) 1.6, Basophils (%) (Auto) 0.5, Neutrophils # (Auto) 2.85, Lymphocytes # (Auto) 0.55, Monocytes # (Auto) 0.30, Eosinophils # (Auto) 0.06, Basophils # (Auto) 0.02 12/21/16 12:30 Test 12/21/16 12:25 12/21/16 12:30 Urine Color YELLOW Urine Appearance CLEAR (CLEAR) Urine pH 7.0 (4.5-7.5) Urine Specific Emerson 1.008 (1.000-1.030) Urine Protein NEG (NEG) Urine Glucose (UA) NEG (NEG) Urine Ketones NEG (NEG) Urine Occult Blood NEG (NEG) Urine Nitrite NEG (NEG) Urine Bilirubin NEG (NEG) Urine Urobilinogen NEG (NEG) Urine Leukocyte Esterase NEG (NEG) Urine WBC (Auto) /hpf (0-5) Urine RBC (Auto) /hpf (0-4) Urine Hyaline Casts (Auto) /lpf (0-5) Urine Epithelial Cells (Auto) /lpf (0-5) Urine Bacteria (Auto) (NEG) Urine RBC 0-4 /hpf (0-4) Urine WBC 0 /hpf (0-5) Urine Epithelial Cells 0-5 /lpf (0-5) Urine Bacteria NEG (NEG) White Blood Count 3.78 K/uL (4.8-10.8) Red Blood Count 4.95 M/uL (4.2-5.4) Hemoglobin 14.6 g/dL (12.0-16.0) Hematocrit 42.2 % (37-47) Mean Corpuscular Volume 85.3 fL (80-100) Mean Corpuscular Hemoglobin 29.5 pg (25-34) Mean Corpuscular Hemoglobin Concent 34.6 g/dl (32-36) Platelet Count 146 K/uL (130-400) Mean Platelet Volume 10.0 fL (7.4-10.4) Neutrophils (%) (Auto) 75.4 % Lymphocytes (%) (Auto) 14.6 % Monocytes (%) (Auto) 7.9 % Eosinophils (%) (Auto) 1.6 % Basophils (%) (Auto) 0.5 % Neutrophils # (Auto) 2.85 K/uL (1.4-6.5) Lymphocytes # (Auto) 0.55 K/uL (1.2-3.4) Monocytes # (Auto) 0.30 K/uL (0.11-0.59) Eosinophils # (Auto) 0.06 K/uL (0-0.5) Basophils # (Auto) 0.02 K/uL (0-0.2) RDW Standard Deviation 40.3 fL (36.4-46.3) RDW Coefficient of Variation 13.1 % (11.5-14.5) Immature Granulocyte % (Auto) 0.0 % Immature Granulocyte # (Auto) 0.00 K/uL (0.00-0.02) Anion Gap 4.0 mmol/L (3-11) Est Creatinine Clear Calc Drug Dose 63.4 ml/min Estimated GFR () 78.2 Estimated GFR (Non- 67.4 BUN/Creatinine Ratio 9.3 (10-20) Calcium Level 8.8 mg/dl (8.5-10.1) Total Bilirubin 0.5 mg/dl (0.2-1) Aspartate Amino Transf (AST/SGOT) 25 U/L (15-37) Alanine Aminotransferase (ALT/SGPT) 25 U/L (12-78) Alkaline Phosphatase 67 U/L (45-117) Total Protein 7.4 gm/dl (6.4-8.2) Albumin 4.0 gm/dl (3.4-5.0) Globulin 3.4 gm/dl (2.5-4.0) Albumin/Globulin Ratio 1.2 (0.9-2) Lipase 150 U/L (73-393) Laboratory results per my review. Medications Administered Medications (Trade) Dose Ordered Sig/Zabrina Route Start Time Stop Time Status Last Admin Dose Admin Sodium Chloride 1,000 ml @ 999 mls/hr Q1H1M STAT IV 12/21/16 14:10 12/21/16 15:10 DC 12/21/16 14:15 999 MLS/HR Ondansetron HCl (Zofran 8mg Iv) 8 mg NOW STAT IV 12/21/16 14:10 12/21/16 14:12 DC 12/21/16 14:17 8 MG Ketorolac Tromethamine (Toradol Inj) 30 mg NOW STAT IV 12/21/16 14:12 12/21/16 14:14 DC 12/21/16 14:17 30 MG Sodium Chloride 1,000 ml @ 999 mls/hr Q1H1M STAT IV 12/21/16 16:41 12/21/16 17:41 DC 12/21/16 16:41 999 MLS/HR Metronidazole (Flagyl Tab) 500 mg NOW STAT PO 12/21/16 18:08 12/21/16 18:09 DC 12/21/16 18:35 500 MG ED Course 1358: The patient was evaluated in room A4B. A complete history and physical exam was performed. 1410: Ordered Ondansetron HCl 8 mg IV, Sodium Chloride 1,000 ml @ 999 mls/hr IV. 1412: Ordered Toradol Inj 30 mg IV. 1607: The patient is still nauseous, but feels a little better. 1641: Ordered Sodium Chloride 1,000 ml @ 999 mls/hr IV. 1800: I updated the patient and discussed her results. 1808: Ordered Metronidazole 500 mg PO. 1822: Upon reevaluation, the patient is feeling better. I discussed the findings and the treatment plan with the patient. She verbalizes agreement and understanding. She was discharged home. Medical Decision Differential diagnosis: Etiologies such as appendicitis, diverticulitis, PUD, biliary pathology, UTI, pancreatitis, obstruction, mesenteric ischemia, aortic pathology, infections, inflammatory bowel disease, renal colic, as well as others were entertained. Doubt acs, dissection, pe, other pulmonary etiology, perf, gi bleed. Pt with mild colitis likely explaining her pain and diarrhea as well as subjective f/c. Pt with recent antibiotics, no hx of IBD, no recent travel, no new foods, unable to provide stool specimen. No vomiting here, no fevers, VS stable. Doubt bacteremia/sepsis. Doubt ischemic colitis. No focal abd pain, r/g on exam and repeat exam here. Medication Reconcilliation Current Medication List: was personally reviewed by me Blood Pressure Screening Patient's blood pressure: Normal blood pressure Impression Primary Impression: Abdominal pain Additional Impressions: Diarrhea Colitis Back pain Scribe Attestation The scribe's documentation has been prepared under my direction and personally reviewed by me in its entirety. I confirm that the note above accurately reflects all work, treatment, procedures, and medical decision making performed by me. Departure Information Dispostion Home / Self-Care Prescriptions Metronidazole (FLAGYL) 500 Mg Tab 500 MG PO TID for 3 Days, #9 TAB Prov: Marlin Swann, DO 12/21/16 Dicyclomine Hcl (BENTYL) 20 Mg Tab 20 MG PO TID Y for Pain, #20 TAB Prov: Marlin Swann, DO 12/21/16 Ondasetron Odt (ZOFRAN ODT) 4 Mg Tab 4 MG SL Q6H for Nausea, #15 TAB Prov: Marlin Swann, DO 12/21/16 Referrals Vickie Hamilton MD (PCP) Forms HOME CARE DOCUMENTATION FORM, IMPORTANT VISIT INFORMATION, WORK / SCHOOL INSTRUCTIONS Patient Instructions My [facility] Additional Instructions Please rest and sip clear fluids at frequent intervals to stay well-hydrated. You may use the spasm medication as prescribed. Please take the Flagyl as prescribed. Please eat a light and bland diet until you're feeling better. If you develop any worsening pain, have recurrent or worsening diarrhea, noticed black or bloody stools, persistent fevers, develop vomiting, or you have any other new concerns, please return the emergency room. Problem Qualifiers Primary Impression: Abdominal pain Abdominal location: generalized Qualified Codes: R10.84 - Generalized abdominal pain Additional Impressions: Diarrhea Diarrhea type: unspecified type Qualified Codes: R19.7 - Diarrhea, unspecified Back pain Back pain location: low back pain Chronicity: acute Back pain laterality: bilateral Sciatica presence: without sciatica Qualified Codes: M54.5 - Low back pain
--- NOTE | 2016-12-21 15:32 | DIAGNOSTIC IMAGING REPORT ---
ULTRASOUND RIGHT UPPER QUADRANT ABDOMEN CLINICAL HISTORY: Epigastric/right upper quadrant abdominal pain. COMPARISON STUDY: Abdominal CT dated 08/04/2016 and 09/13/2015. TECHNIQUE: Real-time, grayscale, and color flow sonography of the right upper quadrant of the abdomen was performed. Images are reviewed in the transverse and longitudinal planes. FINDINGS: Liver: The liver is normal in size and echotexture. There is no intrahepatic biliary ductal dilatation. The main portal vein is patent. There is a 3.4 cm well-circumscribed echogenic lesion identified in the right lobe of the liver. This is typical appearance for hemangioma. At least 2 additional subcentimeter hemangiomas are suggested. Gallbladder: Tiny gallbladder polyps measure up to 5 mm. The gallbladder is otherwise normal in appearance. No shadowing gallstones are identified. There is no gallbladder wall thickening or pericholecystic fluid. A sonographic Arenas's sign is reportedly absent. The common bile duct measures up to 0.4 cm in diameter. Pancreas: Visualized portions of the pancreatic head and body are normal in appearance. Right kidney: Survey images of the right kidney demonstrate normal size and echotexture. There is no hydronephrosis. Ascites: None. IMPRESSION: 1. No acute sonographic abnormality is identified in the right upper quadrant. 2. A 3.4 cm well-circumscribed echogenic lesion in the right lobe of liver is again noted. The appearance is typical for a benign hemangioma when correlated with prior abdominal CT scans. 3. Small gallbladder polyps are incidentally noted. Electronically signed by: Modesto Zambrano M.D. 12/21/2016 3:31 PM Dictated Date/Time: 12/21/2016 3:29 PM
[2016-12-21] MEDS ORDERED: OPTIRAY 320 IV PRN (17:00)
--- NOTE | 2016-12-21 17:37 | DIAGNOSTIC IMAGING REPORT ---
CT OF THE ABDOMEN AND PELVIS WITH CONTRAST CLINICAL HISTORY: Left lower quadrant abdominal pain, nausea and diarrhea. COMPARISON STUDY: CT of the abdomen and pelvis August 04, 2016 and right upper quadrant ultrasound performed earlier today. TECHNIQUE: Following IV administration of 93 mL of Optiray-320, axial images of the abdomen and pelvis were obtained from the lung bases to the proximal femurs. Images were reviewed in the axial, sagittal, and coronal planes. IV contrast was administered without complication. A dose lowering technique was utilized adhering to the principles of ALARA. CT DOSE: 430.60 mGycm FINDINGS: No pneumatosis, free air or portal venous gas is present. Multiple hepatic lesions are unchanged from earlier exams and likely reflect hemangiomas. These include a 3 cm posterior segment right hepatic lobe lesion and a 1.7 cm inferior right hepatic lobe lesion. No new hepatic lesions are present. The spleen, adrenal glands, kidneys and pancreas are normal. There is no evidence for a bowel obstruction. There is mild wall thickening of the ascending colon with trace pericolonic infiltration. This suggests a nonspecific colitis. The appendix is normal. Mass like enlargement of the uterus is similar to prior exam. There is no free fluid. IMPRESSION: 1. Mild wall thickening of the ascending colon with trace pericolonic infiltration. This suggests a mild nonspecific colitis, likely infectious in etiology. 2. No bowel obstruction. Normal appendix. 3. No change in several hepatic lesions which likely reflect hemangiomas. 4. Fibroid uterus. Electronically signed by: Darek Angelo M.D. 12/21/2016 5:35 PM Dictated Date/Time: 12/21/2016 5:23 PM
[2016-12-21 18:05] VITALS: BP 125/77; PULSE 56; O2SAT 100
[2016-12-21] MEDS ORDERED: METRONIDAZOLE 250 MG TAB PO STA (18:08)
[2016-12-21] MEDS ORDERED: DICY20TA35 PO (18:17)
[2016-12-21] MEDS ORDERED: METR500T PO (18:17)
[2016-12-21] MEDS ORDERED: ONDA4TAB10 SL (18:17)
[2016-12-21] MEDS ORDERED: METRONIDAZOLE 250 MG TAB ONE (18:34)
== END 2016-12-21 18:35 | disposition home or self-care (01) ==
LOC: C.EDB 12:06 → C.EDA 18:35
DX: K52.9 Noninfective gastroenteritis and colitis, unspecified (principal); M54.5 Low back pain; F17.210 Nicotine dependence, cigarettes, uncomplicated; Z87.440 Personal history of urinary (tract) infections; D64.9 Anemia, unspecified; M19.90 Unspecified osteoarthritis, unspecified site; Z80.9 Family history of malignant neoplasm, unspecified; Z81.1 Family history of alcohol abuse and dependence

== ENCOUNTER → 2017-06-30 | Outpatient (CLI) | payer OTHER ==
[~2017-06-30] MED LIST changes: -ONDA4TAB10 SL; +SULF800T23 PO
== END | disposition home or self-care (01) ==
LOC: C.LABSPEC 10:55
PROVIDERS: ATTEND Family Medicine
DX: R39.9 Unspecified symptoms and signs involving the genitourinary system (principal)